=== PATIENT | male | born 1965 | race African-American/Black ===

== ENCOUNTER 2018-12-15 05:14 | Inpatient (IN) ==
[2018-12-14 10:52] LABS: Basophils % 0.3 % (0.0-0.8); Eosinophils # 0.1 10*3/uL (0.0-0.87); Eosinophils % 0.5 % (0.00-10.9); Hematocrit 46.6 VOL% (42.0-52.0); Hemoglobin 15.6 GM/DL (14.0-18.0); Immature Granulocytes % 0.4 %; Immature Granulocytes Absolute 0.05 #; Lymphocytes # 1.9 10*3/uL (1.4-4.0); Lymphocytes % 14.5 % (21.2-54.2); Mean Corpuscular HGB Conc 33.5 GM/DL (32-36); Mean Corpuscular Volume 97.7 FL (87-102); Mean Platelet Volume 11.2 FL (9.6-12.0); Monocytes % 10.2 % (1.7-12.7); Neutrophils % 74.1 % (38.7-73.9); Platelet Count 229 T/CUMM (130-400); Red Blood Count 4.77 MC/CUMM (3.8-5.5); Red Cell Distribution Width 11.9 % (9.3-17.3); White Blood Count 12.9 T/CUMM (4-12)
[2018-12-14 11:02] LABS: INR 0.9; Partial Thromboplastin Time 25.1 SECS (0-40)
[2018-12-14 11:10] LABS: Calcium 9.5 MG/DL (8.5-10.1); Osmolality,Calculated 281.5 MOS/KG (273-304)
[2018-12-14 11:41] LABS: Apearance,Urine Slightly Hazy (Clear); Bilirubin,Urine Negative (Negative); Blood, Urine Negative (Negative); Glucose,Urine (UA) Negative (Negative); Hyaline Casts,Urine 51 /LPF (0-3); Ketones,Urine 5 mg/dL (Negative); Mucus,Urine Few /LPF (Occasional); Nitrite,Urine Negative (Negative); Protein,Urine 100 MG/DL; RBC,Urine 1 /HPF (0-4); Urine Color Amber (Yellow); Urine Specific Gravity 1.024 (1.001-1.035); WBC,Urine 1 /HPF (0-6)
[~2018-12-15 05:14] MED LIST: PAPAVERINE 60 MG/2 ML VIAL ONE; SODIUM CHLORIDE 0.9% 1,000 ML IV PRN; TISSUE ADHESIVE 1 EACH APPLICATOR TOP ONE; VANCOMYCIN 1,000 MG VIAL ONE
[2018-12-15] MEDS ORDERED: SUFentanil 250 MCG/5 ML AMP ONE (05:33)
[2018-12-15] MEDS ORDERED: MIDAZOLAM 10 MG/2 ML VIAL ONE (05:34)
[2018-12-15] MEDS ORDERED: DIAZEPAM 5 MG TABLET PO ONE (06:00)
[2018-12-15] MEDS ORDERED: FAMOTIDINE 20 MG TABLET PO ONE (06:00)
[2018-12-15] MEDS ORDERED: FAMOTIDINE 20 MG TABLET ONE (06:03)
[2018-12-15] MEDS ORDERED: DIAZEPAM 5 MG TABLET ONE (06:03)
[2018-12-15] MEDS ORDERED: HEPARIN/NACL 0.9% 2 UNITS/ML 500 ML IV ONE (06:21)
[2018-12-15] MEDS ORDERED: VECURONIUM 10 MG VIAL IV ONE (06:21)
[2018-12-15] MEDS ORDERED: CEFUROXIME 1,500 MG VIAL ONE (06:49)
[2018-12-15 07:46] LABS: ABG Base Excess -1.3 MMOL/L (-2.5-2.5); ABG HCO3 23.4 MMOL/L (20-26); ABG Oxygen Saturation 99.8 % (95-100); ABG PCO2 43.6 MM HG (35-48); ABG PH 7.356 (7.35-7.45); ABG TCO2 21.4 MMOL/L (23-27); Glucose Heart Surgery 139 MG/DL (74-106); Hematocrit Heart Surgery 39.7 PERCENT (42-52); Hemoglobin Heart Surgery 12.9 G/DL (14.0-18.0); Ionized Calcium Arterial 1.16 MMOL/L (1.21-1.46); PCO2 Patient Temp Arterial 43.6 MMHG; PH Patient Temp Arterial 7.356; Patient Temperature 37 CELCIUS; Potassium Heart/CVR 3.9 MMOL/L (3.5-5.1); Sodium Heart/CVR 140 MMOL/L (135-145)
[2018-12-15 08:20] LABS: Apearance,Urine Slightly Hazy (Clear); Bilirubin,Urine Negative (Negative); Blood, Urine Negative (Negative); Glucose,Urine (UA) Negative (Negative); Hyaline Casts,Urine 7 /LPF (0-3); Ketones,Urine 5 mg/dL (Negative); Mucus,Urine Many /LPF (Occasional); Nitrite,Urine Negative (Negative); Protein,Urine 100 MG/DL; RBC,Urine 2 /HPF (0-4); Squamous Epithelial Cell,Urine Occasional /HPF (0-10); Urine Color Amber (Yellow); Urine Specific Gravity 1.027 (1.001-1.035); Urine Urobilinogen < 2.0 EU/DL (0.2-1.0); WBC,Urine 2 /HPF (0-6)
[2018-12-15 09:35] LABS: Hematocrit Heart Surgery 30.5 PERCENT (42-52); Hemoglobin Heart Surgery 9.9 G/DL (14.0-18.0); PCO2 Patient Temp Venous 41.7 MM HG; PH Patient Temp Venous 7.39; PO2 Patient Temp Venous 41.5 MM HG; Potassium Heart/CVR 4.9 MMOL/L (3.5-5.1); VBG Base Excess 0.3 MEQ/L (0-4); VBG HCO3 24.4 MEQ/L (24-28); VBG Oxygen Saturation 79.8 %; VBG PCO2 45.9 MMHG (41-51); VBG PH 7.361; VBG PO2 47.6 MMHG (17-40)
[2018-12-15] MEDS ORDERED: NITROPRUSSIDE 50 MG/2 ML VIAL ONE (09:46)
[2018-12-15] MEDS ORDERED: PHENYLEPHRINE DRIP 0 MG/0 ML PREMIX IV ONE (09:47)
[2018-12-15] MEDS ORDERED: POTASSIUM CHLORIDE RIDER 0 ML IV ONE (09:48)
[2018-12-15 10:13] LABS: Hematocrit Heart Surgery 32.7 PERCENT (42-52); Hemoglobin Heart Surgery 10.6 G/DL (14.0-18.0); PH Patient Temp Venous 7.44; Potassium Heart/CVR 4.8 MMOL/L (3.5-5.1); VBG Base Excess 0.6 MEQ/L (0-4); VBG HCO3 24.6 MEQ/L (24-28); VBG Oxygen Saturation 80.6 %; VBG PCO2 39.6 MMHG (41-51); VBG PH 7.411; VBG PO2 45.9 MMHG (17-40)
[2018-12-15] MEDS ORDERED: MANNITOL 100 GM/500 ML BAG IV ONE (10:31)
[2018-12-15] MEDS ORDERED: MAGNESIUM SULFATE 5 GM/10 ML VIAL IV ONE (10:32)
[2018-12-15] MEDS ORDERED: HEPARIN 10,000 UNIT/10 ML VIAL ONE (10:32)
[2018-12-15] MEDS ORDERED: SODIUM BICARBONATE 50 MEQ/50 ML VIAL IV ONE ×4 (10:32→18:16)
[2018-12-15] MEDS ORDERED: ALBUMIN 25% 25 GM/100 ML VIAL IV ONE (10:32)
[2018-12-15] MEDS ORDERED: PROTAMINE SULFATE 50 MG/5 ML VIAL IV ONE (10:32)
[2018-12-15] MEDS ORDERED: DEXTROSE 5% KCL 20 MEQ 20 MEQ/1,000 ML BAG IV ONE (10:32)
[2018-12-15] MEDS ORDERED: PROTAMINE SULFATE 250 MG/25 ML VIAL IV ONE (10:32)
[2018-12-15] MEDS ORDERED: methylPREDNISolone SOD SUC 1,000 MG/8 ML VIAL ONE (10:32)
[2018-12-15] MEDS ORDERED: FUROSEMIDE 20 MG/2 ML VIAL ONE (10:32)
[2018-12-15 10:42] LABS: ABG Base Excess -2.9 MMOL/L (-2.5-2.5); ABG Oxygen Saturation 99.2 % (95-100); ABG PCO2 43.3 MM HG (35-48); ABG PH 7.333 (7.35-7.45); ABG TCO2 20.6 MMOL/L (23-27); Glucose Heart Surgery 271 MG/DL (74-106); Hematocrit Heart Surgery 35.3 PERCENT (42-52); Hemoglobin Heart Surgery 11.5 G/DL (14.0-18.0); Ionized Calcium Arterial 1.24 MMOL/L (1.21-1.46); PCO2 Patient Temp Arterial 43.3 MMHG; PH Patient Temp Arterial 7.333; Patient Temperature 37 CELCIUS; Potassium Heart/CVR 4.1 MMOL/L (3.5-5.1); Sodium Heart/CVR 136 MMOL/L (135-145)
[2018-12-15] MEDS ORDERED: THROMBIN TOPICAL (RECOMBINANT) 5,000 UNIT VIAL TOP ONE (10:42)
[2018-12-15] MEDS ORDERED: CALCIUM CHLORIDE 1,000 MG/10 ML SYRINGE IV ONE (11:09)
[2018-12-15] MEDS ORDERED: CHLORHEXIDINE 4% SOLN 118 ML BOTTLE TOP PRN (11:32)
[2018-12-15] MEDS ORDERED: MAGNESIUM SULF RIDER 2 GM in PREMIX 1 EACH IV PRN (11:32)
[2018-12-15] MEDS ORDERED: ACETAMINOPHEN 650 MG SUPP RECTAL PRN (11:32)
[2018-12-15] MEDS ORDERED: SODIUM CHLORIDE 0.9% 250 ML IV PRN (11:32)
[2018-12-15] MEDS ORDERED: MIDAZOLAM 2 MG/2 ML VIAL IV PRN (11:32)
[2018-12-15] MEDS ORDERED: ONDANSETRON 4 MG/2 ML VIAL IV PRN (11:32)
[2018-12-15] MEDS ORDERED: INSULIN REGULAR 100 UNIT/ML IV PRN (11:32)
[2018-12-15] MEDS ORDERED: POTASSIUM CHLORIDE RIDER 10 MEQ in PREMIX 1 EACH IV PRN (11:32)
[2018-12-15] MEDS ORDERED: CALCIUM CHLORIDE 1,000 MG/10 ML SYRINGE IV PRN (11:32)
[2018-12-15] MEDS ORDERED: MAGNESIUM SULF RIDER 4 GM in PREMIX 1 EACH IV PRN (11:32)
[2018-12-15] MEDS ORDERED: DEXTROSE 50% 25 GM/50 ML SYRINGE IV PRN ×2 (11:32)
[2018-12-15] MEDS: SODIUM CHLORIDE 0.45% 1,000 ML IV SCH ×2 (11:35)
[2018-12-15] MEDS ORDERED: CALCIUM CHLORIDE 1,000 MG/10 ML VIAL IV ONE (11:46)
[2018-12-15] MEDS ORDERED: ETOMIDATE 40 MG/20 ML VIAL IV ONE (11:47)
[2018-12-15] MEDS ORDERED: ePHEDrine 50 MG/ML AMP ONE (11:47)
[2018-12-15] MEDS ORDERED: SEVOFLURANE 1 UNIT/15 MINUTE INH ONE (11:47)
[2018-12-15] MEDS ORDERED: PHENYLEPHRINE 1 MG/10 ML SYRINGE IV ONE (11:48)
[2018-12-15] MEDS ORDERED: LACTATED RINGERS 1,000 ML IV ONE ×2 (11:48→16:37)
[2018-12-15] MEDS ORDERED: AMINOCAPROIC ACID 5,000 MG/20 ML VIAL ONE (11:48)
[2018-12-15] MEDS ORDERED: SODIUM CHLORIDE 0.9% 1,000 ML IV ONE (11:48)
[2018-12-15] MEDS: ALBUMIN 5% 12.5 GM in PREMIX 1 EACH IV PRN ×7 (12:00→20:09)
[2018-12-15] MEDS ORDERED: INSULIN REGULAR DRIP 100 ML IV SCH (12:00)
[2018-12-15 12:14] LABS: ABG Base Excess -2.4 MMOL/L (-2.5-2.5); ABG HCO3 22.4 MMOL/L (20-26); ABG Oxygen Saturation 97.7 % (95-100); ABG PCO2 51.1 MM HG (35-48); ABG PH 7.295 (7.35-7.45); ABG TCO2 22.1 MMOL/L (23-27); Glucose Heart Surgery 201 MG/DL (74-106); Hematocrit Heart Surgery 38.7 PERCENT (42-52); Hemoglobin Heart Surgery 12.6 G/DL (14.0-18.0); Potassium Heart/CVR 4.1 MMOL/L (3.5-5.1)
[2018-12-15 12:24] LABS: Basophils % 0.2 % (0.0-0.8); Eosinophils # 0.1 10*3/uL (0.0-0.87); Eosinophils % 0.3 % (0.00-10.9); Hematocrit 36.3 VOL% (42.0-52.0); Immature Granulocytes % 0.8 %; Immature Granulocytes Absolute 0.12 #; Lymphocytes # 1.3 10*3/uL (1.4-4.0); Mean Corpuscular HGB Conc 33.6 GM/DL (32-36); Mean Corpuscular Volume 98.9 FL (87-102); Mean Platelet Volume 11.4 FL (9.6-12.0); Monocytes % 7.5 % (1.7-12.7); Neutrophils % 83.2 % (38.7-73.9); Red Cell Distribution Width 11.9 % (9.3-17.3); White Blood Count 15.9 T/CUMM (4-12)
[2018-12-15 12:26] LABS: Hemoglobin 12.2 GM/DL (14.0-18.0); Partial Thromboplastin Time 27.5 SECS (0-40); Platelet Count 191 T/CUMM (130-400); Red Blood Count 3.67 MC/CUMM (3.8-5.5)
[2018-12-15 12:48] LABS: Blood Urea Nitrogen 14 MG/DL (7-18); Calcium 8.6 MG/DL (8.5-10.1); Glucose 180 MG/DL (74-106)
[2018-12-15] MEDS: MORPHINE 4 MG/1 ML VIAL IV PRN ×3 (14:32→22:10)
[2018-12-15 14:49] LABS: ABG Base Excess -2.3 MMOL/L (-2.5-2.5); ABG HCO3 24.2 MMOL/L (20-26); ABG Oxygen Saturation 96.1 % (95-100); ABG PCO2 48.3 MM HG (35-48); ABG PH 7.318 (7.35-7.45); ABG PO2 97.2 MM HG (80-95); ABG TCO2 25.7 MMOL/L (23-27); Glucose Heart Surgery 164 MG/DL (74-106); Hemoglobin Heart Surgery 13.4 G/DL (14.0-18.0); Potassium Heart/CVR 4.1 MMOL/L (3.5-5.1)
[2018-12-15 15:41] LABS: ABG Base Excess -5.4 MMOL/L (-2.5-2.5); ABG Oxygen Saturation 96.7 % (95-100); ABG PCO2 45.4 MM HG (35-48); ABG PH 7.283 (7.35-7.45); ABG TCO2 19.1 MMOL/L (23-27); Glucose Heart Surgery 204 MG/DL (74-106); Hematocrit Heart Surgery 40.1 PERCENT (42-52); Potassium Heart/CVR 3.7 MMOL/L (3.5-5.1)
[2018-12-15] MEDS ORDERED: LACTATED RINGERS 500 ML IV ONE (16:36)
[2018-12-15] MEDS: POTASSIUM CHLORIDE RIDER 20 MEQ in PREMIX 1 EACH IV PRN (17:20)
[2018-12-15] MEDS: MORPHINE 10 MG/1 ML VIAL IV PRN ×2 (17:30→20:05)
[2018-12-15] MEDS: SODIUM BICARB INJ 50 MEQ in SODIUM CHLORIDE 0.45% 1,000 ML IV SCH (17:55)
[2018-12-15 18:09] LABS: ABG Base Excess -6.1 MMOL/L (-2.5-2.5); ABG HCO3 19.4 MMOL/L (20-26); ABG Oxygen Saturation 94.8 % (95-100); ABG PCO2 42.3 MM HG (35-48); ABG PH 7.289 (7.35-7.45); ABG PO2 82.6 MM HG (80-95); ABG TCO2 18.5 MMOL/L (23-27); Glucose Heart Surgery 201 MG/DL (74-106); Hematocrit Heart Surgery 33.1 PERCENT (42-52); Hemoglobin Heart Surgery 10.7 G/DL (14.0-18.0); Potassium Heart/CVR 3.9 MMOL/L (3.5-5.1)
[2018-12-15] MEDS: CEFUROXIME INJ 1,500 MG in SYRINGE 1 EACH IV SCH (18:57)
[2018-12-15 19:36] LABS: ABG Base Excess -3.5 MMOL/L (-2.5-2.5); ABG HCO3 21.4 MMOL/L (20-26); ABG Oxygen Saturation 92.4 % (95-100); ABG PCO2 43.3 MM HG (35-48); ABG PH 7.324 (7.35-7.45); ABG PO2 70.2 MM HG (80-95); ABG TCO2 20.5 MMOL/L (23-27); Glucose Heart Surgery 199 MG/DL (74-106); Hematocrit Heart Surgery 33.1 PERCENT (42-52); Hemoglobin Heart Surgery 10.7 G/DL (14.0-18.0); Potassium Heart/CVR 3.8 MMOL/L (3.5-5.1)
[2018-12-15] MEDS: CHLORHEXIDINE 0.12% ORAL RINSE 60 ML BOTTLE SWISH/SPIT SCH (21:54)
[2018-12-15] MEDS: NITROPRUSSIDE 100 MG in DEXTROSE 5% 246 ML IV PRN (23:14)
[2018-12-15] MEDS: ALBUTEROL/IPRATROPIUM 3 ML NEB RESP TX SCH (23:17)
[2018-12-16 00:37] LABS: ABG Base Excess 1.8 MMOL/L (-2.5-2.5); ABG HCO3 25.9 MMOL/L (20-26); ABG Oxygen Saturation 91.8 % (95-100); ABG PCO2 42.2 MM HG (35-48); ABG PH 7.409 (7.35-7.45); ABG PO2 63.1 MM HG (80-95); ABG TCO2 24.3 MMOL/L (23-27); Glucose Heart Surgery 158 MG/DL (74-106); Hematocrit Heart Surgery 31.3 PERCENT (42-52); Hemoglobin Heart Surgery 10.1 G/DL (14.0-18.0); Potassium Heart/CVR 3.9 MMOL/L (3.5-5.1)
[2018-12-16] MEDS ORDERED: LEVALBUTEROL 0.31 MG/3 ML NEB RESP TX ONE (00:43)
[2018-12-16] MEDS: SODIUM CHLORIDE 0.45% 1,000 ML IV SCH ×2 (01:28→10:37)
[2018-12-16] MEDS: MORPHINE 4 MG/1 ML VIAL IV PRN ×3 (01:48→15:10)
[2018-12-16] MEDS: SODIUM BICARB INJ 50 MEQ in SODIUM CHLORIDE 0.45% 1,000 ML IV SCH (01:58)
[2018-12-16] MEDS: ALBUTEROL/IPRATROPIUM 3 ML NEB RESP TX SCH ×6 (03:30→23:15)
[2018-12-16 04:01] LABS: Basophils % 0.1 % (0.0-0.8); Hematocrit 28.8 VOL% (42.0-52.0); Hemoglobin 9.4 GM/DL (14.0-18.0); Immature Granulocytes % 0.8 %; Immature Granulocytes Absolute 0.16 #; Lymphocytes # 0.7 10*3/uL (1.4-4.0); Lymphocytes % 3.2 % (21.2-54.2); Mean Corpuscular HGB Conc 32.6 GM/DL (32-36); Mean Corpuscular Volume 101.1 FL (87-102); Mean Platelet Volume 11.3 FL (9.6-12.0); Monocytes % 9.8 % (1.7-12.7); Neutrophils % 86.1 % (38.7-73.9); Platelet Count 144 T/CUMM (130-400); Red Blood Count 2.85 MC/CUMM (3.8-5.5); Red Cell Distribution Width 12.3 % (9.3-17.3); White Blood Count 20.6 T/CUMM (4-12)
[2018-12-16 04:35] LABS: Calcium 7.8 MG/DL (8.5-10.1); Osmolality,Calculated 289.7 MOS/KG (273-304)
[2018-12-16] MEDS: MORPHINE 10 MG/1 ML VIAL IV PRN ×2 (05:38→21:20)
[2018-12-16] MEDS ORDERED: FUROSEMIDE 40 MG/4 ML VIAL IV ONE (06:44)
[2018-12-16] MEDS ORDERED: FUROSEMIDE 40 MG/4 ML VIAL ONE (06:50)
[2018-12-16 06:51] LABS: ABG Base Excess 2.5 MMOL/L (-2.5-2.5); ABG HCO3 26.6 MMOL/L (20-26); ABG PCO2 38.9 MM HG (35-48); ABG PH 7.444 (7.35-7.45); ABG PO2 71.4 MM HG (80-95); ABG TCO2 24.2 MMOL/L (23-27); Glucose Heart Surgery 187 MG/DL (74-106); Hematocrit Heart Surgery 30.9 PERCENT (42-52); Potassium Heart/CVR 3.5 MMOL/L (3.5-5.1)
[2018-12-16] MEDS: PANTOPRAZOLE 40 MG VIAL IV SCH (08:06)
[2018-12-16] MEDS: CLOPIDOGREL 75 MG TABLET PO SCH (08:07)
[2018-12-16] MEDS: CEFUROXIME INJ 1,500 MG in SYRINGE 1 EACH IV SCH ×2 (08:07→20:45)
[2018-12-16] MEDS: FUROSEMIDE 40 MG TABLET PO SCH (08:07)
[2018-12-16] MEDS: ASPIRIN EC 325 MG TABLET PO SCH (08:07)
[2018-12-16] MEDS: CARVEDILOL 3.125 MG TABLET PO SCH ×2 (08:07→22:13)
[2018-12-16] MEDS: CHLORHEXIDINE 0.12% ORAL RINSE 60 ML BOTTLE SWISH/SPIT SCH ×2 (08:08→22:13)
[2018-12-16] MEDS: INSULIN REGULAR 100 UNIT/ML SUBCUT SCH ×4 (09:16→20:45)
[2018-12-16] MEDS: POTASSIUM CHLORIDE RIDER 20 MEQ in PREMIX 1 EACH IV PRN ×2 (09:16→10:30)
[2018-12-16 12:27] LABS: ABG Base Excess 4.5 MMOL/L (-2.5-2.5); ABG HCO3 27.9 MMOL/L (20-26); ABG Oxygen Saturation 93.9 % (95-100); ABG PCO2 36.9 MM HG (35-48); ABG PH 7.496 (7.35-7.45); ABG PO2 69.5 MM HG (80-95); Allen Test Positive; Pt O2 Delivery Device Other
[2018-12-16] MEDS ORDERED: KETOROLAC 30 MG/1 ML VIAL IV ONE (12:50)
[2018-12-16] MEDS ORDERED: NITROPRUSSIDE 50 MG/2 ML VIAL ONE (13:48)
[2018-12-16] MEDS: NITROPRUSSIDE 100 MG in DEXTROSE 5% 246 ML IV PRN (15:07)
[2018-12-16] MEDS: ATORVASTATIN 40 MG TABLET PO SCH (22:13)
[2018-12-17] MEDS: INSULIN REGULAR 100 UNIT/ML SUBCUT SCH ×6 (00:01→22:36)
[2018-12-17] MEDS: ALBUTEROL/IPRATROPIUM 3 ML NEB RESP TX SCH ×7 (02:57→23:40)
[2018-12-17 03:54] LABS: Basophils % 0.2 % (0.0-0.8); Hematocrit 29.8 VOL% (42.0-52.0); Hemoglobin 9.8 GM/DL (14.0-18.0); Immature Granulocytes Absolute 0.23 #; Lymphocytes # 0.9 10*3/uL (1.4-4.0); Lymphocytes % 4.1 % (21.2-54.2); Mean Corpuscular HGB Conc 32.9 GM/DL (32-36); Mean Corpuscular Volume 100.3 FL (87-102); Mean Platelet Volume 11.8 FL (9.6-12.0); Monocytes % 9.2 % (1.7-12.7); Neutrophils % 85.5 % (38.7-73.9); Platelet Count 138 T/CUMM (130-400); Red Blood Count 2.97 MC/CUMM (3.8-5.5); Red Cell Distribution Width 12.3 % (9.3-17.3); White Blood Count 22.3 T/CUMM (4-12)
[2018-12-17 04:07] LABS: Calcium 8.6 MG/DL (8.5-10.1); Osmolality,Calculated 282.5 MOS/KG (273-304)
[2018-12-17] MEDS: NITROPRUSSIDE 100 MG in DEXTROSE 5% 246 ML IV PRN ×2 (04:41→12:38)
[2018-12-17] MEDS: POTASSIUM CHLORIDE RIDER 20 MEQ in PREMIX 1 EACH IV PRN (04:54)
[2018-12-17 05:16] LABS: Band Neutrophils 3 % (0-10); Lymphocytes 5 % (20-55); Segmented Neutrophils 84 % (50-85)
[2018-12-17 05:17] LABS: Platelet Estimate Adequate; Total Cells Counted 100
[2018-12-17] MEDS ORDERED: LEVALBUTEROL 0.63 MG/3 ML NEB RESP TX ONE (06:26)
[2018-12-17] MEDS: BUDESONIDE/FORMOTEROL 160-4.5 INHALER 6 GM INH SCH ×2 (09:00→22:01)
[2018-12-17] MEDS: PANTOPRAZOLE 40 MG VIAL IV SCH (09:19)
[2018-12-17] MEDS: CARVEDILOL 3.125 MG TABLET PO SCH ×2 (09:20→22:01)
[2018-12-17] MEDS: CLOPIDOGREL 75 MG TABLET PO SCH ×2 (09:20)
[2018-12-17] MEDS: CHLORHEXIDINE 0.12% ORAL RINSE 60 ML BOTTLE SWISH/SPIT SCH ×2 (09:20→22:01)
[2018-12-17] MEDS: ASPIRIN EC 325 MG TABLET PO SCH (09:20)
[2018-12-17] MEDS: FUROSEMIDE 40 MG TABLET PO SCH (09:20)
[2018-12-17] MEDS ORDERED: NITROPRUSSIDE 50 MG/2 ML VIAL ONE (12:08)
[2018-12-17] MEDS ORDERED: ZALEPLON 5 MG CAPSULE PO PRN (19:02)
[2018-12-17] MEDS: MORPHINE 10 MG/1 ML VIAL IV PRN (20:55)
[2018-12-17] MEDS: ATORVASTATIN 40 MG TABLET PO SCH (22:01)
[2018-12-18] MEDS ORDERED: NITROPRUSSIDE 100 MG in DEXTROSE 5% 246 ML IV PRN (00:33)
[2018-12-18] MEDS: INSULIN REGULAR 100 UNIT/ML SUBCUT SCH ×6 (01:05→22:46)
[2018-12-18] MEDS: ALBUTEROL/IPRATROPIUM 3 ML NEB RESP TX SCH ×5 (03:05→20:41)
[2018-12-18 03:55] LABS: Basophils % 0.1 % (0.0-0.8); Hematocrit 31.2 VOL% (42.0-52.0); Hemoglobin 10.2 GM/DL (14.0-18.0); Immature Granulocytes % 0.8 %; Immature Granulocytes Absolute 0.12 #; Lymphocytes # 1.8 10*3/uL (1.4-4.0); Mean Corpuscular HGB Conc 32.7 GM/DL (32-36); Mean Corpuscular Volume 100.6 FL (87-102); Mean Platelet Volume 11.1 FL (9.6-12.0); Monocytes % 13.8 % (1.7-12.7); Neutrophils % 73.3 % (38.7-73.9); Platelet Count 145 T/CUMM (130-400); Red Cell Distribution Width 12.2 % (9.3-17.3); White Blood Count 15.4 T/CUMM (4-12)
[2018-12-18] MEDS: MORPHINE 10 MG/1 ML VIAL IV PRN ×2 (03:58→11:00)
[2018-12-18 04:08] LABS: Calcium 8.4 MG/DL (8.5-10.1); Osmolality,Calculated 284.3 MOS/KG (273-304)
[2018-12-18] MEDS ORDERED: hydrALAZINE 20 MG/1 ML VIAL IV PRN (06:55)
[2018-12-18] MEDS ORDERED: CARVEDILOL 3.125 MG TABLET PO SCH (06:56)
[2018-12-18] MEDS: CLOPIDOGREL 75 MG TABLET PO SCH ×2 (09:20→10:16)
[2018-12-18] MEDS: CARVEDILOL 6.25 MG TABLET PO SCH ×2 (09:20→22:48)
[2018-12-18] MEDS: ASPIRIN EC 325 MG TABLET PO SCH (09:20)
[2018-12-18] MEDS: CHLORHEXIDINE 0.12% ORAL RINSE 60 ML BOTTLE SWISH/SPIT SCH ×2 (09:20→22:49)
[2018-12-18] MEDS: FUROSEMIDE 40 MG TABLET PO SCH (09:20)
[2018-12-18] MEDS: PANTOPRAZOLE 40 MG VIAL IV SCH (10:17)
[2018-12-18] MEDS: BUDESONIDE/FORMOTEROL 160-4.5 INHALER 6 GM INH SCH ×2 (15:39→22:48)
[2018-12-18] MEDS: ATORVASTATIN 40 MG TABLET PO SCH (22:48)
[2018-12-19] MEDS: ALBUTEROL/IPRATROPIUM 3 ML NEB RESP TX SCH ×8 (00:15→23:29)
[2018-12-19] MEDS: INSULIN REGULAR 100 UNIT/ML SUBCUT SCH ×6 (00:35→20:58)
[2018-12-19] MEDS: PANTOPRAZOLE 40 MG VIAL IV SCH (09:31)
[2018-12-19] MEDS: FUROSEMIDE 40 MG TABLET PO SCH (09:31)
[2018-12-19] MEDS: CARVEDILOL 6.25 MG TABLET PO SCH ×2 (09:31→20:46)
[2018-12-19] MEDS: CLOPIDOGREL 75 MG TABLET PO SCH ×2 (09:32→11:01)
[2018-12-19] MEDS: ASPIRIN EC 325 MG TABLET PO SCH (09:32)
[2018-12-19] MEDS: CHLORHEXIDINE 0.12% ORAL RINSE 60 ML BOTTLE SWISH/SPIT SCH ×2 (09:35→21:05)
[2018-12-19] MEDS: BUDESONIDE/FORMOTEROL 160-4.5 INHALER 6 GM INH SCH ×2 (09:35→21:05)
[2018-12-19] MEDS ORDERED: BISACODYL 5 MG TABLET PO PRN (09:55)
[2018-12-19] MEDS: DOCUSATE SODIUM 100 MG CAPSULE PO SCH ×2 (10:56→21:01)
[2018-12-19] MEDS: ATORVASTATIN 40 MG TABLET PO SCH (20:46)
[2018-12-20] MEDS: MORPHINE 4 MG/1 ML VIAL IV PRN (01:20)
[2018-12-20] MEDS: ALBUTEROL/IPRATROPIUM 3 ML NEB RESP TX SCH ×4 (02:13→14:55)
[2018-12-20 05:43] LABS: Basophils % 0.1 % (0.0-0.8); Eosinophils # 0.1 10*3/uL (0.0-0.87); Eosinophils % 0.5 % (0.00-10.9); Immature Granulocytes % 0.5 %; Immature Granulocytes Absolute 0.07 #; Lymphocytes # 1.8 10*3/uL (1.4-4.0); Lymphocytes % 12.5 % (21.2-54.2); Mean Corpuscular HGB Conc 34.5 GM/DL (32-36); Mean Corpuscular Volume 96.7 FL (87-102); Mean Platelet Volume 10.7 FL (9.6-12.0); Monocytes % 15.5 % (1.7-12.7); Neutrophils % 70.9 % (38.7-73.9); Platelet Count 230 T/CUMM (130-400); Red Cell Distribution Width 11.7 % (9.3-17.3); White Blood Count 14.7 T/CUMM (4-12)
[2018-12-20 06:09] LABS: Calcium 8.4 MG/DL (8.5-10.1); Osmolality,Calculated 286.1 MOS/KG (273-304)
[2018-12-20] MEDS ORDERED: POTASSIUM CHLORIDE 20 MEQ TABLET PO PRN (07:18)
[2018-12-20] MEDS: POTASSIUM CHLORIDE 20 MEQ TABLET PO PRN ×6 (07:44→20:49)
[2018-12-20] MEDS: INSULIN REGULAR 100 UNIT/ML SUBCUT SCH ×4 (07:46→20:49)
[2018-12-20] MEDS: CARVEDILOL 6.25 MG TABLET PO SCH ×2 (08:33→20:49)
[2018-12-20] MEDS: CLOPIDOGREL 75 MG TABLET PO SCH ×2 (08:33→09:43)
[2018-12-20] MEDS: FUROSEMIDE 40 MG TABLET PO SCH (08:33)
[2018-12-20] MEDS: PANTOPRAZOLE 40 MG VIAL IV SCH (08:33)
[2018-12-20] MEDS: DOCUSATE SODIUM 100 MG CAPSULE PO SCH ×2 (08:33→20:49)
[2018-12-20] MEDS: ASPIRIN EC 325 MG TABLET PO SCH (08:33)
[2018-12-20] MEDS: BUDESONIDE/FORMOTEROL 160-4.5 INHALER 6 GM INH SCH ×2 (09:39→20:50)
[2018-12-20] MEDS: CHLORHEXIDINE 0.12% ORAL RINSE 60 ML BOTTLE SWISH/SPIT SCH ×2 (09:42→20:50)
[2018-12-20] MEDS ORDERED: FUROSEMIDE 40 MG/4 ML VIAL IV ONE ×2 (13:00→19:30)
[2018-12-20] MEDS: ATORVASTATIN 40 MG TABLET PO SCH (20:49)
[2018-12-21 05:06] LABS: Basophils % 0.1 % (0.0-0.8); Eosinophils # 0.2 10*3/uL (0.0-0.87); Eosinophils % 1.4 % (0.00-10.9); Hematocrit 31.9 VOL% (42.0-52.0); Hemoglobin 10.6 GM/DL (14.0-18.0); Immature Granulocytes % 0.6 %; Immature Granulocytes Absolute 0.08 #; Lymphocytes % 14.2 % (21.2-54.2); Mean Corpuscular HGB Conc 33.2 GM/DL (32-36); Mean Corpuscular Volume 99.1 FL (87-102); Mean Platelet Volume 10.5 FL (9.6-12.0); Monocytes % 17.2 % (1.7-12.7); Neutrophils % 66.5 % (38.7-73.9); Platelet Count 265 T/CUMM (130-400); Red Blood Count 3.22 MC/CUMM (3.8-5.5); Red Cell Distribution Width 11.8 % (9.3-17.3); White Blood Count 14.1 T/CUMM (4-12)
[2018-12-21 05:24] LABS: Hypochromasia 1+; Lymphocytes 14 % (20-55); Platelet Estimate Adequate; Segmented Neutrophils 67 % (50-85); Total Cells Counted 100
[2018-12-21] MEDS: ALBUTEROL/IPRATROPIUM 3 ML NEB RESP TX SCH ×8 (05:41→23:04)
[2018-12-21 08:54] LABS: Calcium 9.1 MG/DL (8.5-10.1); Osmolality,Calculated 285.1 MOS/KG (273-304)
[2018-12-21] MEDS: CLOPIDOGREL 75 MG TABLET PO SCH ×2 (09:04→09:09)
[2018-12-21] MEDS: ASPIRIN EC 325 MG TABLET PO SCH (09:09)
[2018-12-21] MEDS: FUROSEMIDE 40 MG TABLET PO SCH (09:09)
[2018-12-21] MEDS: CARVEDILOL 6.25 MG TABLET PO SCH ×2 (09:09→21:57)
[2018-12-21] MEDS: DOCUSATE SODIUM 100 MG CAPSULE PO SCH ×2 (09:09→21:57)
[2018-12-21] MEDS: CHLORHEXIDINE 0.12% ORAL RINSE 60 ML BOTTLE SWISH/SPIT SCH ×2 (09:14→21:59)
[2018-12-21] MEDS: LOSARTAN 25 MG TABLET PO SCH ×2 (09:14→21:58)
[2018-12-21] MEDS: BUDESONIDE/FORMOTEROL 160-4.5 INHALER 6 GM INH SCH ×2 (09:15→21:59)
[2018-12-21] MEDS: INSULIN REGULAR 100 UNIT/ML SUBCUT SCH ×4 (09:15→21:58)
[2018-12-21] MEDS: POTASSIUM CHLORIDE 20 MEQ TABLET PO PRN ×2 (14:28→15:32)
[2018-12-21] MEDS: ATORVASTATIN 40 MG TABLET PO SCH (21:58)
[2018-12-22] MEDS: ALBUTEROL/IPRATROPIUM 3 ML NEB RESP TX SCH ×3 (03:15→11:20)
[2018-12-22 04:43] LABS: Basophils % 0.1 % (0.0-0.8); Eosinophils # 0.2 10*3/uL (0.0-0.87); Eosinophils % 1.4 % (0.00-10.9); Hematocrit 32.3 VOL% (42.0-52.0); Hemoglobin 10.8 GM/DL (14.0-18.0); Immature Granulocytes % 0.8 %; Immature Granulocytes Absolute 0.11 #; Lymphocytes # 2.5 10*3/uL (1.4-4.0); Lymphocytes % 16.9 % (21.2-54.2); Mean Corpuscular HGB Conc 33.4 GM/DL (32-36); Mean Corpuscular Volume 98.8 FL (87-102); Mean Platelet Volume 10.4 FL (9.6-12.0); Monocytes % 16.7 % (1.7-12.7); Neutrophils % 64.1 % (38.7-73.9); Platelet Count 326 T/CUMM (130-400); Red Blood Count 3.27 MC/CUMM (3.8-5.5); Red Cell Distribution Width 11.8 % (9.3-17.3); White Blood Count 14.6 T/CUMM (4-12)
[2018-12-22 05:10] LABS: Eosinophils 3 % (0-10); Lymphocytes 25 % (20-55); Platelet Estimate Normal; Segmented Neutrophils 62 % (50-85); Total Cells Counted 100
[2018-12-22 08:28] VITALS: BP 169/99
[2018-12-22] MEDS ORDERED: PANTOPRAZOLE 40 MG TABLET PO SCH (09:00)
[2018-12-22] MEDS: INSULIN REGULAR 100 UNIT/ML SUBCUT SCH (09:11)
[2018-12-22] MEDS: CARVEDILOL 6.25 MG TABLET PO SCH (09:38)
[2018-12-22] MEDS: CLOPIDOGREL 75 MG TABLET PO SCH ×2 (09:38→09:40)
[2018-12-22] MEDS: ASPIRIN EC 325 MG TABLET PO SCH (09:38)
[2018-12-22] MEDS: LOSARTAN 25 MG TABLET PO SCH (09:38)
[2018-12-22] MEDS: DOCUSATE SODIUM 100 MG CAPSULE PO SCH (09:38)
[2018-12-22] MEDS: FUROSEMIDE 40 MG TABLET PO SCH (09:39)
[2018-12-22] MEDS: CHLORHEXIDINE 0.12% ORAL RINSE 60 ML BOTTLE SWISH/SPIT SCH (09:39)
[2018-12-22] MEDS: BUDESONIDE/FORMOTEROL 160-4.5 INHALER 6 GM INH SCH (09:39)
== END 2018-12-22 12:15 | disposition home health service (06) | DRG 166 ==
LOC: N.SDSINP 05:14 → N.CVR 09:01 → N.ICU 12-16 08:48 → N.TELES 12-18 12:18
PROVIDERS: ADMIT Thoracic Surgery (Cardiothoracic Vascular Surgery); ATTEND Thoracic Surgery (Cardiothoracic Vascular Surgery)